=== PATIENT | male | born 1980 | race Caucasian/White ===

== ENCOUNTER 2021-12-19 11:07 | Emergency (ER) | payer OTHER ==
[~2021-12-19] VITALS: Ht 185.4 cm; Wt 95.3 kg
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
[2021-12-19] MEDS ORDERED: SYNTHROID150 MCG PO (11:19)
[2021-12-19 11:47] LABS: BASOPHILS 1.4 % (0.0-2.0); EOSINOPHILS 3.6 % (0.0-3.0); HEMATOCRIT 39.4 % (42.0-52.0); HEMOGLOBIN 13.2 gm/dL (14.0-18.0); LYMPHOCYTES 30.8 % (24.0-44.0); MCH 28.4 pg (26.0-34.0); MCHC 33.6 g/dL (28.0-37.0); MCV 84.6 fL (80.0-100.0); MONOCYTES 5.9 % (1.0-8.0); PLATELET COUNT 360 thou/uL (150-400); POLYS 58.3 % (36.0-66.0); RBC 4.66 mil/uL (4.50-6.00); RDW 18.9 % (10.5-14.5); WBC 5.2 thou/uL (4.0-11.0)
[2021-12-19 11:57] LABS: CALCIUM 8.5 mg/dL (8.5-10.1); CREATININE 1.5 mg/dL (0.7-1.3); POTASSIUM 3.3 mmol/L (3.5-5.1)
[2021-12-19 12:00] LABS: ALBUMIN 3.5 g/dL (3.4-5.0); TOTAL BILIRUBIN 0.5 mg/dL (0.2-1.0); TOTAL PROTEIN 7.3 g/dL (6.4-8.2)
[2021-12-19 12:06] LABS: URINE BILIRUBIN NEGATIVE (Negative); URINE BLOOD NEGATIVE (Negative); URINE CLARITY CLEAR; URINE COLOR YELLOW; URINE GLUCOSE-RANDOM* NEGATIVE (Negative); URINE KETONES NEGATIVE (Negative); URINE LEUKOCYTES-REFLEX NEGATIVE (Negative); URINE NITRITE-REFLEX NEGATIVE (Negative); URINE PROTEIN (DIPSTICK) NEGATIVE (Negative); URINE UROBILINOGEN 0.2 E.U./dl (0.2-1.0)
[2021-12-19 12:15] LABS: AMP/METHAMP POSITIVE (Negative); BARBITURATES Negative (Negative); BENZODIAZEPINES Negative (Negative); COCAINE POSITIVE (Negative); METHADONE Negative (Negative); OPIATES Negative (Negative); PCP Negative (Negative)
[2021-12-19 12:46] LABS: ANISOCYTOSIS 2+
[2021-12-19 12:55] VITALS: BP 134/83
--- NOTE | 2021-12-19 16:04 | EKG ---
[address] [address] ELECTROCARDIOGRAM REPORT Name: JUNITO LANGLEY Room #: DEP JARROD Mcgregor#: [id number] Admission: 12/19/21 Attend Phys: Discharge: 12/19/21 Date of : 84 Report #: [id number] 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
== END 2021-12-19 12:55 | disposition home or self-care (01) ==
LOC: ER 11:07
PROVIDERS: Emergency Medicine
DX: T40.601A Poisoning by unspecified narcotics, accidental (unintentional), initial encounter (principal); F19.10 Other psychoactive substance abuse, uncomplicated; Y92.89 Other specified places as the place of occurrence of the external cause